=== PATIENT | female | born 1975 | race Hispanic/Latino ===

== ENCOUNTER 2019-03-03 10:12 | Outpatient (CLI) | payer SELFPAY ==
--- NOTE | 2019-03-03 12:23 | RAD ---
EXAM: XR Foot Lt 3 View STANDARD PROVIDED CLINICAL HISTORY: Pain FINDINGS: There is no evidence for fracture or other acute osseous abnormality. Alignment appears anatomic. Angela nt spaces appear preserved. IMPRESSION: No evidence for an acute osseous abnormality. If there is persistent clinical concern, conservative m anagement and follow-up imaging advised.
== END 2019-03-03 10:13 | disposition home or self-care (01) ==
LOC: BICRAD 10:12
DX: F32.9 Major depressive disorder, single episode, unspecified (principal)

== ENCOUNTER 2023-04-27 08:09 | Outpatient (CLI) | payer BC | END 2023-04-27 08:10 | disposition home or self-care (01) | LOC: BICMAMMO 08:09 | PROVIDERS: ATTEND Nurse Practitioner Family | DX: Z12.31 Encounter for screening mammogram for malignant neoplasm of breast (principal) | CPT/HCPCS: 77063; 77067 ==

== ENCOUNTER 2024-08-05 12:06 | Outpatient (CLI) | payer BC | END 2024-08-05 12:07 | disposition home or self-care (01) | LOC: BICMAMMO 12:06 | PROVIDERS: ATTEND Nurse Practitioner Family | DX: Z12.31 Encounter for screening mammogram for malignant neoplasm of breast (principal) | CPT/HCPCS: 77063; 77067 ==